=== PATIENT | male | born 1960 | race African-American/Black ===

== ENCOUNTER 2019-04-23 11:45 | Inpatient (IN) | payer OTHER ==
[2019-04-23 13:50] VITALS: BMI 21.8
--- NOTE | 2019-04-23 14:49 | HP ---
COWS - Scale Resting Pulse: 1= [place] 81-100 Sweatin= Chills/Flushing Restless Observation: 1= Difficult to Sit Still Pupil Size: 1= Pupils >than Normal Bone or Joint Aches: 2= Severe Diffuse Aches Runny Nose/ Eye Tearin= Runny Nose/Eyes GI Upset > 30mins: 2= Nausea/Diarrhea Tremor Observation: 1= Tremor [place], Not Seen Yawning Observation: 1= 1-2x During Session Anxiety or Irritability: 1=Feels Anxious/Irritable Goose Flesh Skin: 0=Smooth Skin COWS Score: 13 CIWA Score Nausea/Vomitin-Mild Nausea/No Vomiting Muscle Tremors: 3 Anxiety: 3 Agitation: 2 Paroxysmal Sweats: 2 Orientation: 0-Oriented Tacttile Disturbances: 0-None Auditory Disturbances: 0-None Visual Disturbances: 0-None Headache: 1-Very Mild CIWA-Ar Total Score: 12 - Admission Criteria OASAS Guidelines: Admission for Medically Managed Detox: Requires at least one of the followin. CIWA greater than 12 2. Seizures within the past 24 hours 3. Delirium tremens within the past 24 hours 4. Hallucinations within the past 24 hours 5. Acute intervention needed for co occurring medical disorder 6. Acute intervention needed for co occurring psychiatric disorder 7. Severe withdrawal that cannot be handled at a lower level of care (continued vomiting, continued diarrhea, abnormal vital signs) requiring intravenous medication and/or fluids 8. Admission [facility] Chief Complaint: here for detox from heroin and benzo. 58 yo with no medical problems, on no meds. Using opioids since age 13 and benzo for the last 5 years. Benzo "enhances the heroin high". Was last in detox at about 2 months ago- restarted use after about 2 weeks. PCP at [address] [place] [address]. Never tried MAT methadone nor suboxone: pt would like to try this kind of treatment. Pt is homeless. 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 Heroin- sniffs about 8-12 bags/day, last OD 6 months, says has narcan kit at home benzo- 1- 1 1/2 bars (2 mg bar) xanax occ alcohol, cocaine, MJ IStop- no controlled meds Utox- pos for mop, alin, Bar and benzo Allergies/Adverse Reactions: Allergies Allergy/AdvReac Type Severity Reaction Status Date / Time No Known Allergies Allergy Verified 04/23/19 13:42 - Ebola screening Have you traveled outside of the country in the last 21 days: No (N) Have you had contact with anyone from an Ebola affected area: No Do you have a fever: No Patient History - Patient Medical History Hx Anemia: No - Patient Surgical History Past Surgical History: Yes Other Surgical History: R ankle surgery- plates and screws - PPD History Documented Results: Negative w/o proof - Smoking Cessation Smoking history: Current every day smoker Have you smoked in the past 12 months: Yes Aproximately how many cigarettes per day: 10 Hx Chewing Tobacco Use: No Initiated information on smoking cessation: Yes 'Breaking Loose' booklet given: 04/23/19 - Substance & Tx. History Hx Alcohol Use: No Hx Substance Use: Yes Substance Use Type: Cocaine, Heroin, Opiates, Tranquilizers - Substances abused Alprazolam (Xanax) Substance route: Oral Frequency: Daily Amount used: 1 1/2 STICK Age of first use: 53 Date of last use: 04/22/19 Heroin Substance route: Inhalation Frequency: Daily Amount used: 12-15 BAGS Age of first use: 56 Date of last use: 04/22/19 Family Disease History - Family Disease History Family History: Denies Admission Physical Exam S - Vital Signs Vital Signs: Vital Signs - 24 hr 04/23/19 13:38 Temperature 97.6 F Pulse Rate 54 L Respiratory 16 Rate Blood Pressure 129/84 - Physical General Appearance: Yes: Within Normal Limits, No Apparent Distress, Mild Distress HEENTM: Yes: Within Normal Limits, EOMI Respiratory: Yes: Within Normal Limits, Chest Non-Tender, Lungs Clear Neck: Yes: Within Normal Limits Cardiology: Yes: Within Normal Limits, Regular Rhythm Abdominal: Yes: Within Normal Limits, Normal Bowel Sounds Genitourinary: Yes: Within Normal Limits, Scrotal Edema Musculoskeletal: Yes: Within Normal Limits, Other (R ankle brace) Extremities: Yes: Within Normal Limits, Other (R ankle brace) Neurological: Yes: Within Normal Limits, international banker II-XII NML intact, Fully Oriented, Alert Integumentary: Yes: Within Normal Limits, Other - Diagnostic (1) Opioid use disorder Current Visit: Yes Status: Acute (2) Mild benzodiazepine use disorder Current Visit: Yes Status: Acute (3) Ankle pain, right Current Visit: Yes Status: Acute Breathalyzer - Breathalyzer Breathalyzer: 0 Urine Drug Screen - Test Device Lot number: [id number] Expiration date: 03/26/20 - Control Is test valid?: Yes - Results Drug screen NEGATIVE: No Urine drug screen results: ALIN-Cocaine, MOP-Opiates, BAR-Barbiturates, BZO- Benzodiazepines Inpatient Rehab Admission - Rehab Decision to Admit Inpatient rehab admission?: No
[2019-04-23] MEDS ORDERED: METHOCARBAMOL 500 MG TABLET PO PRN (14:55)
[2019-04-23] MEDS ORDERED: cloNIDine HCL 0.1 MG TABLET PO PRN ×3 (14:55→17:46)
[2019-04-23] MEDS ORDERED: ACETAMINOPHEN 325 MG TABLET (FP) PO PRN ×2 (14:55)
[2019-04-23] MEDS ORDERED: IBUPROFEN 400 MG TABLET (FP) PO PRN (14:55)
[2019-04-23] MEDS ORDERED: hydrOXYzine PAMOATE 25 MG CAPSULE (FP) PO PRN (14:55)
[2019-04-23] MEDS ORDERED: MAGNESIUM CITRATE 300 ML BOTTLE PO PRN (14:55)
[2019-04-23] MEDS ORDERED: BISMUTH SUBSALICYLATE 262 MG/15 ML BTL PO PRN (14:55)
[2019-04-23] MEDS ORDERED: MENTHOL/PHENOL 1 EACH UD MM PRN (14:55)
[2019-04-23] MEDS ORDERED: MELATONIN 5 MG TABLETS PO PRN (14:55)
[2019-04-23] MEDS ORDERED: MAGNESIUM HYDROX 2400MG/30ML ORAL SUSPENSION 30 ML CUP PO PRN (14:55)
[2019-04-23] MEDS ORDERED: MAG HYDROX/AL HYDROX/SIMETH 30 ML UNIT-DOSE CUP PO PRN (14:55)
[2019-04-23] MEDS ORDERED: METHADONE HCL 10 MG TABLET (FOR DETOX USE ONLY) PO ONE ×3 (15:45→23:00)
[2019-04-23] MEDS: diazePAM 5 MG TABLET PO PRN (17:19)
[2019-04-23 17:34] LABS: HEMATOCRIT 39.6 % (35.4-49); HEMOGLOBIN 13.1 GM/dL (11.7-16.9); MCH 29.1 pg (25.7-33.7); MEAN CELL VOLUME 88.4 fl (80-96); MEAN PLT VOLUME 8.8 fl (7.5-11.1); PLATELET COUNT 190 K/MM3 (134-434); RBC 4.48 M/mm3 (4.00-5.60); RDW 14.2 % (11.9-15.9); WHITE BLOOD COUNT 4.3 K/mm3 (4.0-10.0)
[2019-04-23 17:47] LABS: ALBUMIN 3.9 g/dl (3.4-5.0); BILIRUBIN,TOTAL 0.5 mg/dL (0.2-1); CALCIUM 8.9 mg/dL (8.5-10.1); CREATININE 1.1 mg/dL (0.55-1.3); POTASSIUM 4.8 mmol/L (3.5-5.1); TOT PROT 7.5 g/dl (6.4-8.2)
[2019-04-23 20:49] LABS: PH,URINE 5.5 (5.0-8.0); URINE APPEARANCE CLEAR; URINE BILIRUBIN NEGATIVE (NEGATIVE); URINE COLOR YELLOW; URINE GLUCOSE (UA) NEGATIVE (NEGATIVE); URINE KETONE NEGATIVE (NEGATIVE); URINE LEUK ESTERASE TRACE (NEGATIVE); URINE NITRITE NEGATIVE (NEGATIVE); URINE PROTEIN NEGATIVE (NEGATIVE)
[2019-04-23 22:15] LABS: EPI CELLS 1 /HPF (0-5/HPF); HYALINE CASTS 1 /lpf (0-8); URINE RBC 1 /hpf (0-4); URINE WBC 2 /hpf (0-5)
[2019-04-24] MEDS: diazePAM 5 MG TABLET PO SCH ×4 (00:08→22:19)
[2019-04-24] MEDS: THIAMINE HCL 100 MG TABLET (FP) PO SCH ×2 (00:09→22:19)
[2019-04-24] MEDS ORDERED: METHADONE HCL 10 MG TABLET (FOR DETOX USE ONLY) PO ONE (10:00)
[2019-04-24] MEDS ORDERED: METHADONE HCL 5 MG TABLET (FOR DETOX USE ONLY) PO ONE (10:00)
[2019-04-24] MEDS: PRENATAL VITAMINS W/ FOLIC ACID TABLET (FP) PO SCH (10:02)
--- NOTE | 2019-04-24 10:09 | PN ---
[facility] CIWA - CIWA Score Nausea/Vomitin-No Nausea/No Vomiting Muscle Tremors: 2 Anxiety: 3 Agitation: 3 Paroxysmal Sweats: 2 Orientation: 0-Oriented Tacttile Disturbances: 0-None Auditory Disturbances: 0-None Visual Disturbances: 0-None Headache: 0-None Present CIWA-Ar Total Score: 10 BHS COWS - Scale Resting Pulse: 0= [place] 80 or Below Sweatin=Flushed/Facial Moisture Restless Observation: 1= Difficult to Sit Still Pupil Size: 0= Normal to Room Light Bone or Joint Aches: 2= Severe Diffuse Aches Runny Nose/ Eye Tearin= Nasal Congestion GI Upset > 30mins: 1= Stomach Cramp Tremor Observation of Outstretched Hands: 2= Slight Tremor Visible Yawning Observation: 2= >3x During Session Anxiety or Irritability: 1=Feels Anxious/Irritable Goose Flesh Skin: 0=Smooth Skin COWS Score: 12 S Progress Note (SOAP) Subjective: sweats shakes interrupted sleep body aches nasal congestion Objective: 04/24/19 10:05 Vital Signs Temperature 98.1 F 04/24/19 09:20 Pulse Rate 54 L 04/24/19 09:20 Respiratory Rate 18 04/24/19 09:20 Blood Pressure 138/76 04/24/19 09:20 O2 Sat by Pulse Oximetry (%) Laboratory Tests 04/23/19 04/23/19 04/23/19 15:10 15:10 16:00 WBC 4.3 RBC 4.48 Hgb 13.1 Hct 39.6 MCV 88.4 MCH 29.1 MCHC 33.0 RDW 14.2 Plt Count 190 MPV 8.8 Sodium 140 Potassium 4.8 Chloride 104 Carbon Dioxide 30 Anion Gap 5 L BUN 11 Creatinine 1.1 Est GFR (CKD-EPI)AfAm 84.12 Est GFR (CKD-EPI)NonAf 72.58 Random Glucose 59 L Calcium 8.9 Total Bilirubin 0.5 AST 38 H ALT 33 Alkaline Phosphatase 82 Total Protein 7.5 Albumin 3.9 Urine Color Yellow Urine Appearance Clear Urine pH 5.5 Ur Specific [place] 1.016 Urine Protein Negative Urine Glucose (UA) Negative Urine Ketones Negative Urine Blood Negative Urine Nitrite Negative Urine Bilirubin Negative Urine Urobilinogen 1.0 Ur Leukocyte Esterase Trace Urine WBC (Auto) 2 Urine RBC (Auto) 1 Urine Casts (Auto) 1 U Epithel Cells (Auto) 1 aaox3 ambulating no acute distress Assessment: 04/24/19 10:05 withdrawal sx Plan: continue detox increase fluids
[2019-04-24] MEDS ORDERED: LORazepam 1 MG TABLET PO SCH (17:00)
--- NOTE | 2019-04-24 17:22 | EKG ---
Test Reason : Blood Pressure : / mmHG Vent. Rate : 048 BPM Atrial Rate : 048 BPM P-R Int : 142 ms QRS Dur : 086 ms QT Int : 476 ms P-R-T Axes : 000 070 075 degrees QTc Int : 425 ms SINUS BRADYCARDIA MINIMAL VOLTAGE CRITERIA FOR LVH, MAY BE NORMAL VARIANT BORDERLINE ECG NO PREVIOUS ECGS AVAILABLE Confirmed by ALFREDO FANG MD ([id number]) on 04/24/2019 5:22:05 PM Referred By: Confirmed By:ALFREDO FANG MD
[2019-04-24] MEDS: MINERAL OIL/PETROLAT/WATER TOPICAL CREAM 113 GM JAR TP SCH (22:20)
[2019-04-25] MEDS ORDERED: METHADONE HCL 10 MG TABLET (FOR DETOX USE ONLY) PO ONE ×2 (10:00)
[2019-04-25] MEDS: diazePAM 5 MG TABLET PO SCH ×2 (10:10→22:27)
[2019-04-25] MEDS: PRENATAL VITAMINS W/ FOLIC ACID TABLET (FP) PO SCH (10:10)
[2019-04-25] MEDS: MINERAL OIL/PETROLAT/WATER TOPICAL CREAM 113 GM JAR TP SCH ×2 (10:11→22:29)
--- NOTE | 2019-04-25 11:42 | PN ---
[facility] CIWA - CIWA Score Nausea/Vomitin-No Nausea/No Vomiting Muscle Tremors: 2 Anxiety: 2 Agitation: 2 Paroxysmal Sweats: 1-Minimal [place] Moist Orientation: 0-Oriented Tacttile Disturbances: 0-None Auditory Disturbances: 0-None Visual Disturbances: 0-None Headache: 0-None Present CIWA-Ar Total Score: 7 BHS COWS - Scale Resting Pulse: 0= [place] 80 or Below Sweatin= Chills/Flushing Restless Observation: 0= Sits Still Pupil Size: 0= Normal to Room Light Bone or Joint Aches: 1= Mild Discomfort Runny Nose/ Eye Tearin= Nasal Congestion GI Upset > 30mins: 0= None Tremor Observation of Outstretched Hands: 1= Tremor [place], Not Seen Yawning Observation: 1= 1-2x During Session Anxiety or Irritability: 1=Feels Anxious/Irritable Goose Flesh Skin: 0=Smooth Skin COWS Score: 6 S Progress Note (SOAP) Subjective: feeling better little anxiety Objective: 04/25/19 11:40 Vital Signs Temperature 97.9 F 04/25/19 09:56 Pulse Rate 56 L 04/25/19 09:56 Respiratory Rate 18 04/25/19 09:56 Blood Pressure 142/75 04/25/19 09:56 O2 Sat by Pulse Oximetry (%) Laboratory Tests 04/23/19 04/23/19 04/23/19 15:10 15:10 15:10 WBC 4.3 RBC 4.48 Hgb 13.1 Hct 39.6 MCV 88.4 MCH 29.1 MCHC 33.0 RDW 14.2 Plt Count 190 MPV 8.8 Sodium 140 Potassium 4.8 Chloride 104 Carbon Dioxide 30 Anion Gap 5 L BUN 11 Creatinine 1.1 Est GFR (CKD-EPI)AfAm 84.12 Est GFR (CKD-EPI)NonAf 72.58 Random Glucose 59 L Calcium 8.9 Total Bilirubin 0.5 AST 38 H ALT 33 Alkaline Phosphatase 82 Total Protein 7.5 Albumin 3.9 Urine Color Urine Appearance Urine pH Ur Specific [place] Urine Protein Urine Glucose (UA) Urine Ketones Urine Blood Urine Nitrite Urine Bilirubin Urine Urobilinogen Ur Leukocyte Esterase Urine WBC (Auto) Urine RBC (Auto) Urine Casts (Auto) U Epithel Cells (Auto) RPR Titer Nonreactive HIV 1&2 Antibody Screen HIV P24 Antigen 04/23/19 04/23/19 15:10 16:00 WBC RBC Hgb Hct MCV MCH MCHC RDW Plt Count MPV Sodium Potassium Chloride Carbon Dioxide Anion Gap BUN Creatinine Est GFR (CKD-EPI)AfAm Est GFR (CKD-EPI)NonAf Random Glucose Calcium Total Bilirubin AST ALT Alkaline Phosphatase Total Protein Albumin Urine Color Yellow Urine Appearance Clear Urine pH 5.5 Ur Specific [place] 1.016 Urine Protein Negative Urine Glucose (UA) Negative Urine Ketones Negative Urine Blood Negative Urine Nitrite Negative Urine Bilirubin Negative Urine Urobilinogen 1.0 Ur Leukocyte Esterase Trace Urine WBC (Auto) 2 Urine RBC (Auto) 1 Urine Casts (Auto) 1 U Epithel Cells (Auto) 1 RPR Titer HIV 1&2 Antibody Screen Negative HIV P24 Antigen Negative labs noted aaox3 ambulating no acute distress Assessment: 04/25/19 11:42 mild withdrawals Plan: continue detox increase fluids
[2019-04-25] MEDS: diazePAM 5 MG TABLET PO PRN ×2 (13:38→18:46)
[2019-04-25] MEDS ORDERED: LORazepam 0.5 MG TABLET PO SCH (17:00)
[2019-04-25] MEDS: THIAMINE HCL 100 MG TABLET (FP) PO SCH (22:27)
[2019-04-26] MEDS ORDERED: METHADONE HCL 5 MG TABLET (FOR DETOX USE ONLY) PO ONE (06:00)
[2019-04-26] MEDS ORDERED: diazePAM 5 MG TABLET PO SCH (06:00)
[2019-04-26] MEDS ORDERED: METHADONE HCL 10 MG TABLET (FOR DETOX USE ONLY) PO ONE (10:00)
[2019-04-26] MEDS: MINERAL OIL/PETROLAT/WATER TOPICAL CREAM 113 GM JAR TP SCH ×2 (10:26→23:06)
[2019-04-26] MEDS: PRENATAL VITAMINS W/ FOLIC ACID TABLET (FP) PO SCH (10:26)
[2019-04-26] MEDS: diazePAM 5 MG TABLET PO PRN (10:29)
--- NOTE | 2019-04-26 11:15 | PN ---
[facility] CIWA - CIWA Score Nausea/Vomitin-No Nausea/No Vomiting Muscle Tremors: 1-None Visible, but [place] Anxiety: 1-Mildly Anxious Agitation: 1-Slight > Activity Paroxysmal Sweats: No Perspiration Orientation: 0-Oriented Tacttile Disturbances: 0-None Auditory Disturbances: 0-None Visual Disturbances: 0-None Headache: 0-None Present CIWA-Ar Total Score: 3 S COWS - Scale Resting Pulse: 0= [place] 80 or Below Sweatin= No chills or Flushing Restless Observation: 0= Sits Still Pupil Size: 0= Normal to Room Light Bone or Joint Aches: 1= Mild Discomfort Runny Nose/ Eye Tearin= None GI Upset > 30mins: 0= None Tremor Observation of Outstretched Hands: 1= Tremor [place], Not Seen Yawning Observation: 0= None Anxiety or Irritability: 1=Feels Anxious/Irritable Goose Flesh Skin: 0=Smooth Skin COWS Score: 3 [facility] Progress Note (SOAP) Subjective: mild anxiety Objective: 04/26/19 11:13 Vital Signs Temperature 97.3 F L 04/26/19 10:30 Pulse Rate 69 04/26/19 10:30 Respiratory Rate 18 04/26/19 10:30 Blood Pressure 146/81 04/26/19 10:30 O2 Sat by Pulse Oximetry (%) aaox3 ambulating no acute distress Assessment: 04/26/19 11:14 mild withdrawal sx Plan: continue detox d/c in am
[2019-04-26] MEDS: hydrOXYzine PAMOATE 50 MG CAPSULE (FP) PO PRN (17:43)
[2019-04-26] MEDS: THIAMINE HCL 100 MG TABLET (FP) PO SCH (23:06)
[2019-04-27] MEDS ORDERED: METHADONE HCL 5 MG TABLET (FOR DETOX USE ONLY) PO ONE (06:00)
[2019-04-27 09:10] VITALS: BP 132/76; PULSE 59; TEMP 98.6
[2019-04-27] MEDS: PRENATAL VITAMINS W/ FOLIC ACID TABLET (FP) PO SCH (09:28)
[2019-04-27] MEDS: MINERAL OIL/PETROLAT/WATER TOPICAL CREAM 113 GM JAR TP SCH (09:29)
[2019-04-27] MEDS: hydrOXYzine PAMOATE 50 MG CAPSULE (FP) PO PRN (12:52)
--- NOTE | 2019-04-27 13:08 | HP ---
ERICKA PINZON Rehab Assess/Revision - Admission History Admitted to Rehab from: [facility] [place] Date of Admission to Rehab: 04/27/2019 - Vital signs Vital Signs: Vital Signs Period Temp Pulse Resp BP Sys/Peters Pulse Ox Last 24 Hr 97.7 F-98.6 F 58-70 18-18 122-140/61-77 Vital Signs 04/27/19 04/27/19 06:00 09:09 Temperature 98.2 F 98.6 F Pulse Rate 58 L 59 L Respiratory 18 18 Rate Blood Pressure 122/61 132/76 Lab Results WBC 4.3 K/mm3 (4.0-10.0) 04/23/19 15:10 RBC 4.48 M/mm3 (4.00-5.60) 04/23/19 15:10 Hgb 13.1 GM/dL (11.7-16.9) 04/23/19 15:10 Hct 39.6 % (35.4-49) 04/23/19 15:10 MCV 88.4 fl (80-96) 04/23/19 15:10 MCHC 33.0 g/dl (32.0-35.9) 04/23/19 15:10 RDW 14.2 % (11.9-15.9) 04/23/19 15:10 Plt Count 190 K/MM3 (134-434) 04/23/19 15:10 Sodium 140 mmol/L (136-145) 04/23/19 15:10 Potassium 4.8 mmol/L (3.5-5.1) 04/23/19 15:10 Chloride 104 mmol/L (98-107) 04/23/19 15:10 Carbon Dioxide 30 mmol/L (21-32) 04/23/19 15:10 Anion Gap 5 MMOL/L (8-16) L 04/23/19 15:10 BUN 11 mg/dL (7-18) 04/23/19 15:10 Creatinine 1.1 mg/dL (0.55-1.3) 04/23/19 15:10 Random Glucose 59 mg/dL (74-106) L 04/23/19 15:10 Calcium 8.9 mg/dL (8.5-10.1) 04/23/19 15:10 - Findings Detox History & Physical reviewed: Yes Concur with findings: Yes Comments/Additional Findings: Pt is medically stable, completed detox protocol and is transferred to the rehab for continued care and management. Inpatient Rehab Admission - Rehab Decision to Admit Inpatient rehab admission?: Yes - Initial Determination Are CD services needed?: Yes Free of communicable disease: Yes Not in need of hospitalization: Yes - Rehab Admission Criteria Previous failed treatment: Yes Poor recovery environment: Yes Comorbidities: Yes Lacks judgement: No Patient is meeting Inpatient Rehab admission criteria:: Yes
--- NOTE | 2019-04-27 13:32 | DS ---
[facility] Detox Discharge Summary Admission Date: 04/23/19 Discharge Date: 04/27/19 - History Present History: Cocaine Dependence, Opioid Dependence, Sedative Dependence Additional Comments: Pt is medically cleared and is discharge to rehab for continued care and management. Pertinent Past History: H/o Cocaine, Opiates, Barbiturates, and Benzodiazepines use disorder. - Physical Exam Results Vital Signs: Vital Signs Temperature 98.6 F 04/27/19 09:09 Pulse Rate 59 L 04/27/19 09:09 Respiratory Rate 18 04/27/19 09:09 Blood Pressure 132/76 04/27/19 09:09 O2 Sat by Pulse Oximetry (%) Pertinent Admission Physical Exam Findings: withdrawal symptoms - Treatment Hospital Course: Detox Protocol Followed, Detoxed Safely, Responded well, Discharged Condition Good, Rehab Referral Accepted Patient has Accepted a Rehab Referral to: [facility] - Medication Discharge Medications: Ambulatory Orders NK [No Known Home Medication] 04/23/19 - Diagnosis (1) Ankle pain, right Current Visit: Yes Status: Acute (2) Mild benzodiazepine use disorder Current Visit: Yes Status: Acute (3) Opioid use disorder Current Visit: Yes Status: Acute - AMA Did Patient Leave Against Medical Advice: No
== END 2019-04-27 13:40 | disposition other institution (70) | DRG 773 ==
LOC: YASAS 11:45 → Y6N 15:31
PROVIDERS: ADMIT Surgery; ATTEND Surgery
PROC: HZ2ZZZZ Detoxification Services for Substance Abuse Treatment (ICD-10-PCS; principal; 2019-04-23)
DX: F11.23 Opioid dependence with withdrawal (principal); F13.230 Sedative, hypnotic or anxiolytic dependence with withdrawal, uncomplicated; F14.20 Cocaine dependence, uncomplicated; M25.571 Pain in right ankle and joints of right foot
CPT/HCPCS: 36415; 80053; 81003; 85027; 86593; 87389; 93005; 93010; J0735

== ENCOUNTER 2019-04-27 13:50 | Inpatient (IN) | payer OTHER ==
--- NOTE | 2019-04-27 13:26 | HP ---
ERICKA PINZON Rehab Assess/Revision - Admission History Admitted to Rehab from: [facility] [place] Date of Admission to Rehab: 04/27/2019 - Vital signs Vital Signs: vital signs stable. - Findings Detox History & Physical reviewed: Yes Concur with findings: Yes Comments/Additional Findings: Pt is medically stable, completed detox protocol and is transferred to the rehab for continued care and management. Inpatient Rehab Admission - Rehab Decision to Admit Inpatient rehab admission?: Yes - Initial Determination Are CD services needed?: Yes Free of communicable disease: Yes Not in need of hospitalization: Yes - Rehab Admission Criteria Previous failed treatment: Yes Poor recovery environment: Yes Comorbidities: Yes Lacks judgement: No Patient is meeting Inpatient Rehab admission criteria:: Yes
[~2019-04-27 13:50] MED LIST: ACETAMINOPHEN 325 MG TABLET (FP) PO PRN; IBUPROFEN 400 MG TABLET (FP) PO PRN; LOPERAMIDE HCL 2 MG CAPSULE PO PRN; MAG HYDROX/AL HYDROX/SIMETH 30 ML UNIT-DOSE CUP PO PRN; MAGNESIUM CITRATE 300 ML BOTTLE PO PRN; MAGNESIUM HYDROX 2400MG/30ML ORAL SUSPENSION 30 ML CUP PO PRN; MENTHOL/PHENOL 1 EACH UD MM PRN; P-EPHED 60MG/TRIPROLIDI 2.5MG TABLET PO PRN; guaiFENesin 200 MG/10 ML 10 ML UNIT-DOSE CUPS PO PRN
[2019-04-27] MEDS ORDERED: ONDANSETRON *ODT* 4 MG TABLET SL ONE (14:28)
--- NOTE | 2019-04-27 14:37 | PN ---
[facility] Progress Note Note: S:pt c/o muscle aches and nausea, denies vomiting. O: vital signs stable A: muscle pain. pt is alert and oriented x3 and in no respiratory distress. P:Robaxin 500mg po bid and Zofran 4mg po once ordered.
[2019-04-27] MEDS: THIAMINE HCL 100 MG TABLET (FP) PO SCH (21:42)
[2019-04-27] MEDS: METHOCARBAMOL 500 MG TABLET PO SCH (21:42)
[2019-04-28] MEDS: MINERAL OIL/PETROLAT/WATER TOPICAL CREAM 454 GM JAR TP PRN (07:43)
[2019-04-28] MEDS: METHOCARBAMOL 500 MG TABLET PO SCH (09:21)
[2019-04-28] MEDS: PRENATAL VITAMINS W/ FOLIC ACID TABLET (FP) PO SCH (09:21)
--- NOTE | 2019-04-28 17:51 | PN ---
S Progress Note Note: pt reports back pain after taking Robaxin , also ongoing runny nose , post- acute withdrawal symptoms . agreeable to take Clonidine on prn basis . Dottie ordered .
[2019-04-28] MEDS: cloNIDine HCL 0.1 MG TABLET PO PRN ×2 (19:13→23:45)
[2019-04-28] MEDS: THIAMINE HCL 100 MG TABLET (FP) PO SCH (21:07)
[2019-04-28] MEDS: METHYL SALICYLATE/MENTHOL OINT 30 GM TUBE TP PRN (22:42)
[2019-04-29] MEDS: cloNIDine HCL 0.1 MG TABLET PO PRN ×3 (07:35→20:17)
[2019-04-29] MEDS: MINERAL OIL/PETROLAT/WATER TOPICAL CREAM 454 GM JAR TP PRN (07:36)
[2019-04-29] MEDS: METHYL SALICYLATE/MENTHOL OINT 30 GM TUBE TP PRN (07:36)
[2019-04-29] MEDS: PRENATAL VITAMINS W/ FOLIC ACID TABLET (FP) PO SCH (10:28)
[2019-04-29] MEDS: hydrOXYzine PAMOATE 50 MG CAPSULE (FP) PO PRN (20:17)
[2019-04-29] MEDS: THIAMINE HCL 100 MG TABLET (FP) PO SCH (21:31)
[2019-04-30] MEDS: cloNIDine HCL 0.1 MG TABLET PO PRN ×3 (09:16→21:20)
[2019-04-30] MEDS: PRENATAL VITAMINS W/ FOLIC ACID TABLET (FP) PO SCH (09:16)
--- NOTE | 2019-04-30 10:07 | PN ---
"[facility] Progress Note (SOAP) Subjective: Patient is requesting to start suboxone treatment. Reports that he was here 2 months ago and started on suboxone. He was referred to [facility] in [place] , but they could not start suboxone and he was then referred to [facility] for emergency Suboxone. At the present time, he does not have a discharge plan, but believes he is going to [facility], which has a Suboxone treatment program. Sabrina JANIS does not have any reports of Suboxone prescriptions and patient confirms that he only received it while in substance abuse treatment and on the street. Reports symptoms of withdrawal this AM- feeling weak, tired, runny nose, yawning. He received clonidine this AM and vistaril last night for withdrawal symptoms. Dulce Diehl | Reference #: [id number] [place]. JHONNY MONSALVE Date: 1960 Address: [address] [place] [address] Sex: Male Rx Written Rx Dispensed Drug Strength Quantity Days Supply Prescriber Name 09/24/2018 09/24/2018 OXYCODONE-ACETAMINOPHEN 5-325 30.0 3 ERI JONES [place]: This report was requested by: Dulce Diehl | Reference #: [id number] Jhonny Monsalve, 1960 Search Date: 04/30/2019 10:05:51 AM There are no results for the search terms that you entered. Objective: A+O x3, no neurological deficits, No yawning, rhinorrhea, piloerection, sweating , tearing of eyes, tremors, restlessness, vomiting, muscle twitches, anxiety or irritability observed. Urine tox positive for Benzodiazepines. Vital Signs (72 hours) 04/28/19 04/28/19 04/28/19 00:30 03:30 07:02 Temperature 97.9 F Pulse Rate 52 L Respiratory 18 18 18 Rate Blood Pressure 126/74 04/28/19 04/28/19 04/29/19 19:50 23:06 00:30 Temperature Pulse Rate 61 66 Respiratory 18 18 18 Rate Blood Pressure 126/84 126/78 04/29/19 04/29/19 04/29/19 03:30 06:54 13:40 Temperature 97.7 F Pulse Rate 57 L 66 Respiratory 18 18 18 Rate Blood Pressure 132/77 117/71 04/29/19 04/30/19 04/30/19 22:28 00:30 03:30 Temperature Pulse Rate 56 L Respiratory 18 18 Rate Blood Pressure 131/75 04/30/19 06:45 Temperature 97.6 F Pulse Rate 52 L Respiratory 18 Rate Blood Pressure 122/81 04/30/19 14:41 04/30/19 14:46 URINE DRUG SCREEN RESULTS Drug Screen Negative No Urine Drug Screen Results BZO-Benzodiazepines Assessment: experiencing minimal withdrawal symptoms, relieved with vistaril and clonidine. Diagnosis: Opioid use disorder. 04/30/19 14:45 04/30/19 14:48 Plan: Will start on 2 mg of suboxone. Discussed with counselor discharge plans. Patient will be going to [facility] when discharged and treated in the outpatient clinic until he can enter local company [employer] rehab treatment. He will be provided with suboxone treatment."
[2019-04-30] MEDS: THIAMINE HCL 100 MG TABLET (FP) PO SCH (21:17)
[2019-04-30] MEDS: hydrOXYzine PAMOATE 50 MG CAPSULE (FP) PO PRN (21:17)
[2019-04-30] MEDS: MELATONIN 5 MG TABLETS PO PRN (21:19)
[2019-05-01] MEDS: PRENATAL VITAMINS W/ FOLIC ACID TABLET (FP) PO SCH (09:49)
[2019-05-01] MEDS ORDERED: BUPRENORPHINE/NALOXONE 2 MG/0.5 MG FILM PACKET SL SCH (10:00)
[2019-05-01] MEDS: THIAMINE HCL 100 MG TABLET (FP) PO SCH (21:11)
[2019-05-01] MEDS ORDERED: BUPRENORPHINE/NALOXONE 2 MG/0.5 MG FILM PACKET SL ONE (22:00)
[2019-05-02] MEDS: BUPRENORPHINE/NALOXONE 2 MG/0.5 MG FILM PACKET SL SCH ×2 (09:54→21:32)
[2019-05-02] MEDS: PRENATAL VITAMINS W/ FOLIC ACID TABLET (FP) PO SCH (09:54)
--- NOTE | 2019-05-02 14:53 | PN ---
[facility] Progress Note Note: 58 years old male admitted on 04/27/19 for opiate and benzo rehab begin suboxone 05/01/19 patient is doing well with 2-0.5 mg of suboxone bid follow up with [facility] suboxone maintenance program (waiting for confirmation)
[2019-05-02] MEDS: THIAMINE HCL 100 MG TABLET (FP) PO SCH (21:32)
[2019-05-03] MEDS: PRENATAL VITAMINS W/ FOLIC ACID TABLET (FP) PO SCH (09:41)
[2019-05-03] MEDS: BUPRENORPHINE/NALOXONE 2 MG/0.5 MG FILM PACKET SL SCH ×2 (09:42→21:17)
--- NOTE | 2019-05-03 13:32 | CONSULT ---
[facility] Psychiatric Consult - Data Date of interview: 05/03/19 Admission source: Identifying data: Mr Monsalve is a 58 years old single Black male, unemployed with no source of income, homeless seeking rehab treatment for opioid and benzodiazepine Substance Abuse History: Reports history of heroin and xanax use. Refer to addiction counselor's summary for further information Medical History: Significant for history of orthosurgery for fracture right ankle from a fall. Smokes 10 cigarettes daily Psychiatric History: Denies history of previous psychiatric treatment. However, reports feeing depressed and sleeping poorly Physical/Sexual Abuse/Trauma History: Denies history of emotional, physical or sexual abuse as well as DV relationship. No service Additional Comment: Reports history of multiple previous arrests including 8 felony convictions. Denies being on parole/probationat present but reports being on pre trial for shoplifting Mental Status Exam - Mental Status Exam Alert and Oriented to: Time, Place, Person Cognitive Function: Fair Patient Appearance: Well Groomed Mood: Depressed Affect: Appropriate Patient Behavior: Cooperative Speech Pattern: Clear Voice Loudness: Normal Thought Process: Intact, Goal Oriented Hallucinations: Denies Suicidal Ideation: Denies Homicidal Ideation: Denies Insight/Judgement: Fair Sleep: Poorly Appetite: Good Muscle strength/Tone: Normal Gait/Station: Normal Psychiatric Findings - Problem List ([facility] 1, 2,3) (1) Substance induced mood disorder Current Visit: Yes Status: Acute (2) Substance-induced sleep disorder Current Visit: Yes Status: Acute (3) Opioid dependence Current Visit: Yes Status: Acute (4) Sedative hypnotic or anxiolytic dependence Current Visit: Yes Status: Acute (5) Nicotine dependence Current Visit: Yes Status: Chronic - Initial Treatment Plan Initial Treatment Plan: 1) Start Melatonin 5mg po HS prn for insomnia. 2) Continue inpatient rehabitation
[2019-05-03] MEDS: THIAMINE HCL 100 MG TABLET (FP) PO SCH (21:17)
[2019-05-04] MEDS: PRENATAL VITAMINS W/ FOLIC ACID TABLET (FP) PO SCH (10:06)
[2019-05-04] MEDS: BUPRENORPHINE/NALOXONE 2 MG/0.5 MG FILM PACKET SL SCH ×2 (10:06→21:48)
[2019-05-04] MEDS: THIAMINE HCL 100 MG TABLET (FP) PO SCH (21:48)
[2019-05-05] MEDS: PRENATAL VITAMINS W/ FOLIC ACID TABLET (FP) PO SCH (10:50)
[2019-05-05] MEDS: BUPRENORPHINE/NALOXONE 2 MG/0.5 MG FILM PACKET SL SCH ×2 (10:50→21:21)
[2019-05-05] MEDS: THIAMINE HCL 100 MG TABLET (FP) PO SCH (21:21)
[2019-05-06] MEDS: PRENATAL VITAMINS W/ FOLIC ACID TABLET (FP) PO SCH (10:12)
[2019-05-06] MEDS: BUPRENORPHINE/NALOXONE 2 MG/0.5 MG FILM PACKET SL SCH ×2 (10:13→21:18)
[2019-05-06] MEDS: MINERAL OIL/PETROLAT/WATER TOPICAL CREAM 454 GM JAR TP PRN (10:14)
[2019-05-06] MEDS ORDERED: PT OWN MED DRAWER 7, Y5N ONE (10:15)
[2019-05-06] MEDS: THIAMINE HCL 100 MG TABLET (FP) PO SCH (21:18)
[2019-05-07] MEDS: BUPRENORPHINE/NALOXONE 2 MG/0.5 MG FILM PACKET SL SCH ×2 (10:11→21:35)
[2019-05-07] MEDS: PRENATAL VITAMINS W/ FOLIC ACID TABLET (FP) PO SCH (10:11)
--- NOTE | 2019-05-07 11:30 | PN ---
S Progress Note (SOAP) Subjective: Patient to be discharged tomorrow Objective: 05/07/19 11:25 Vital Signs (72 hours) 05/05/19 05/05/19 05/05/19 00:30 03:30 06:51 Temperature 98.2 F Pulse Rate 58 L Respiratory 18 18 18 Rate Blood Pressure 133/80 05/06/19 05/06/19 05/06/19 00:30 03:30 07:21 Temperature 98.6 F Pulse Rate 53 L Respiratory 18 18 18 Rate Blood Pressure 125/84 05/07/19 05/07/19 03:30 06:43 Temperature 98.3 F Pulse Rate 64 Respiratory 18 18 Rate Blood Pressure 120/74 Assessment: Medically stable for discharge Discharge Dx Opioid Dependence Mild Benzo dependence Plan: Will continue suboxone treatment at [facility] and is seeking ch[facility] care at [facility]. Presently receiving aftercare at [facility] on and , but will change to [facility]. Suboxone prescription to be transmitted to [facility].
[2019-05-07] MEDS: THIAMINE HCL 100 MG TABLET (FP) PO SCH (21:35)
[2019-05-07] MEDS: MELATONIN 5 MG TABLETS PO PRN (21:36)
[2019-05-08 07:05] VITALS: BP 133/77; PULSE 54; TEMP 98
[2019-05-08] MEDS: PRENATAL VITAMINS W/ FOLIC ACID TABLET (FP) PO SCH (09:12)
[2019-05-08] MEDS: BUPRENORPHINE/NALOXONE 2 MG/0.5 MG FILM PACKET SL SCH (09:13)
== END 2019-05-08 09:22 | disposition home or self-care (01) | DRG 772 ==
LOC: YASAS 13:50 → Y3W 13:51
PROVIDERS: ADMIT Neuromusculoskeletal Medicine & OMM; ATTEND Neuromusculoskeletal Medicine & OMM
PROC: HZ42ZZZ Group Counseling for Substance Abuse Treatment, Cognitive-Behavioral (ICD-10-PCS; principal; 2019-04-27)
DX: F10.20 Alcohol dependence, uncomplicated (principal); F13.20 Sedative, hypnotic or anxiolytic dependence, uncomplicated; F17.210 Nicotine dependence, cigarettes, uncomplicated; F19.24 Other psychoactive substance dependence with psychoactive substance-induced mood disorder; F19.282 Other psychoactive substance dependence with psychoactive substance-induced sleep disorder
CPT/HCPCS: J0735; Q0162